=== PATIENT | male | born 1980 | race Caucasian/White ===

== ENCOUNTER 2018-03-22 14:53 | Emergency (ER) | payer MEDICAID ==
[~2018-03-22] VITALS: Ht 188 cm; Wt 102.5 kg
[~2018-03-22 14:53] MED LIST: AMLO10TA2 PO; ASPI-650 PO; CEFD300C37 PO; DOXY100C15 PO; FEXO60TA9 PO; FLUT50DI PO; LOSA100T6 PO; TRAZ100T15 PO
[2018-03-22] MEDS ORDERED: KETOROLAC 30 MG/1 ML ONE (15:45)
[2018-03-22 15:54] VITALS: BP 109/50
[2018-03-22] MEDS ORDERED: KETOROLAC 30 MG/1 ML IM ONE (16:00)
[2018-03-22 16:06] LABS: BASOPHILS # (AUTO) 0.07 x10^3/uL (0-0.1); BASOPHILS % (AUTO) 1 % (0-1); EOSINOPHILS # (AUTO) 0.19 x10^3/uL (0-0.4); EOSINOPHILS % (AUTO) 2 % (1-7); LYMPHOCYTES # (AUTO) 1.65 x10^3/uL (1-3.4); LYMPHOCYTES % (AUTO) 18 % (22-44); MD NO; MEAN CORPUSCULAR HEMOGLOBIN 33.5 pg (27.5-34.5); MEAN CORPUSCULAR HGB CONC 34.3 g/dL (33.2-36.2); MEAN CORPUSCULAR VOLUME 97.7 fL (81-97); MEAN PLATELET VOLUME 7.7 fL (7.4-10.4); MONOCYTES # (AUTO) 1.11 x10^3/uL (0.2-0.8); MONOCYTES % (AUTO) 12 % (2-9); NEUTROPHILS % (AUTO) 68 % (42-75); PLATELET COUNT 179 x10^3/uL (130-400); RED BLOOD COUNT 4.57 x10^6/uL (4.38-5.82); RED CELL DISTRIBUTION WIDTH 13.7 % (9.4-14.8)
[2018-03-22 16:19] LABS: ALBUMIN 3.4 g/dL (3.4-5.0); ANION GAP 10 mmol/L (5-15); CALCIUM 7.9 mg/dL (8.5-10.1); CHLORIDE 99 mmol/L (98-107); CREATININE 0.83 mg/dL (0.7-1.3)
== END 2018-03-22 16:47 | disposition home or self-care (01) ==
LOC: ED 16:20
DX: S46.912A Strain of unspecified muscle, fascia and tendon at shoulder and upper arm level, left arm, initial encounter (principal); F10.229 Alcohol dependence with intoxication, unspecified; I10 Essential (primary) hypertension; X58.XXXA Exposure to other specified factors, initial encounter; Y93.89 Activity, other specified; Y99.8 Other external cause status; Y92.89 Other specified places as the place of occurrence of the external cause
CPT/HCPCS: 36415; 71045; 73030; 80048; 80307; 82040; 85025; 93005; 96372; 99285; J1885